=== PATIENT | male | born 1965 | race Caucasian/White ===

== ENCOUNTER → 2024-11-22 | Outpatient (CLI) | payer OTHER, SELFPAY ==
[2024-11-22 16:44] LABS: Mucous, Urine 0 SEEN /hpf (<or=2+); Red Blood Cells-Urine 0 SEEN /hpf (0-5); Squamous Epithelial Cells - UA 0 SEEN /hpf (0-5)
[2024-11-22 18:04] LABS: Hematocrit 42.2 % (40-54); Hemoglobin 14.7 g/dL (13.0-16.5); Immature Granulocytes Count 0.010 X10^3/uL (0.0-0.0); Mean Corp Hgb Conc 34.8 g/dL (32-36); Mean Corpuscular Volume 90.0 fL (80-94); Mean Platelet Vol. 8.5 fl (6.2-12.0); NRBC Flagged by Analyzer 0 % (0-5); Platelet Count 180 K/mm3 (150-450); RBC Distribution Width CV 12.5 % (11.6-14.6); RBC Distribution Width SD 40.9 fl (35.1-43.9); Red Blood Count 4.69 M/mm3 (4.6-6.2); White Blood Count 7.3 K/mm3 (4.4-11.0)
[2024-11-22 18:27] LABS: Color, Urine Yellow (Yellow); Glucose, Dipstick Normal (Normal); Ketone-Dipstick Negative (Negative); Leukocyte Esterase-Dipstick Negative /ul (Negative); Nitrite-Dipstick Negative (Negative); Occult Blood-Urine Negative /ul (Negative); Protein-Dipstick 15 mg/dl (Negative); Specific Gravity, Urine 1.020 (1.002-1.030); Urine Bilirubin Dipstick Negative (Negative)
[2024-11-22 18:49] LABS: AST(SGOT) 24 U/L (<=37); Alanine Aminotransfer ALT/SGPT 15 U/L (<=46); Albumin, Serum 4.5 g/dL (3.5-5.0); Alkaline Phosphatase 81 U/L (40-129); Anion Gap 12 (5-15); BUN 19 mg/dL (4-19); BUN/Creat Ratio 15.3 RATIO (10-20); Calcium,Total 9.7 mg/dL (7.6-11.0); Carbon Dioxide 22.4 mmol/L (21.0-32.0); Chloride 105 mmol/L (98-108); Cholesterol 192 mg/dL (<=200); Globulin 2.8 g/dL (2.2-4.2); Glucose 86 mg/dL (70-99); Low Density Lipoprotein Calc. 131 mg/dL; PSA,Total - Annual Screen 0.43 ng/mL (0.02-4.00); Potassium 4.3 mmol/L (3.3-5.1); Triglycerides 98 mg/dL; Very Low Density Lipoprotein 20 mg/dL (5-40); Vitamin D,25 Hydroxy 23.0 ng/mL (30-100); cholesterol:hdl ratio screen 4.64
== END | disposition home or self-care (01) ==
LOC: MFPLAB 16:10
PROVIDERS: Visit Provider Family Medicine
DX: R31.9 Hematuria, unspecified (principal); Z13.220 Encounter for screening for lipoid disorders; Z13.1 Encounter for screening for diabetes mellitus; Z12.5 Encounter for screening for malignant neoplasm of prostate; R53.83 Other fatigue
CPT/HCPCS: 36415; 80053; 80061; 81001; 82306; 84153; 84443; 85025; 87086; G0103

== ENCOUNTER 2025-03-05 05:43 | Day surgery (SDC) | payer OTHER, SELFPAY ==
[2025-03-05] VITALS (9 sets, daily range): BP systolic 105–133; BP diastolic 72–83; PULSE 61–77; RESP 16–18; TEMP 36.1–36.2; O2SAT 97–100; BMI 29.0
--- OUTSIDE RECORDS SUMMARY | 2025-03-05 05:46 | XMS RPT_ITS | CCD ---
Author Organization [facility] Care Team Providers Care Account Liaison Name Role Phone Kevin Martins Attending Unavailable Eliezer GAYLE, Kevin Attending Physician Problems Problem Classification Problem Date Documented Da te Episodic/Chronic Genitourinary symptoms and ill-defined conditions (1 source) Hematuria, unspecified; Translations: [Hematuria, unspecified] Onset: 12-06-2024 Episodic Results Test Name Value Interpretation Reference Range Facility CNOV 12-04-2024 CNOV Office Visit (GENSWS) VISHALJAHAIRA Smith ([id number]) 1965 M Date Time Provider Department 12/04/24 9:30 AM ROSY WEISS GENSWS During your visit today, we recorded the following information about you: Rosy Weiss APRN.NUCLEAR SPECTROSCOPIST 12/11/2024 8:59 AM Signed Unsure how chart was activated. Pt was never seen. Appt was cancelled d/t financial. Referring Provider: SELF [[id number]] Allergies As of Date: 12/04/2024 (No Known Allergies) Date Reviewed: 07/08/2016 Reviewed by: June Kearns LPN - Fully Assessed Primary Visit Diagnosis:FH: colon cancer [Z80.0] Prescriptions as of 12/11/2024 - hydrocortisone (ANUSOL-HC) 25 mg suppository 1 Suppository by RECTAL route twice daily as needed (hemorrhoids/rectal pain). - imiquimod 5 % cream apply every other day (3 days/wk) Problem List As Of Date 12/04/2024 Noted Resolved FH: colon cancer [Z80.0] 11/04/2011 Encounter Status:Closed by ROSY WEISS on 12/11/24 Normal [facility] Urine Cultureon 11-23-2024 [facility] Order Date: 11/22/24 Order Info: 630-4 - CUUR Culture exhibits no growth. Normal [facility] Comment on above: Performed By: #### M 100.2200 #### [facility] [address] [place], [address] Absolute lymphocyte countOrd ered By: [facility] on 11-22-2024 Lymphocytes Auto (Unsp spec) [#/Vol] 1.50 10*3/uL 0.83-4.51 [facility] Absolute neutrophil countOrd ered By: [facility] on 11-22-2024 Neutrophils (Bld) [#/Vol] 4.9 10*3/uL 2.0-7.7 [facility] Anion gap in Serum or Plasma Ordered By: Kevin Martins on 11-22-2024 Anion gap [Moles/Vol] 12 mmol/L 5-15 [facility] Automated lymphocyte count a s percentage of total leukocytesOrdered By: Kevin Martins on 11-22-2024 Lymphocytes/100 WBC Auto (Unsp spec) 20.6 % 19-41 [facility] BUN/creatinine ratioOrdered By: [facility] Eliezer on 11-22-2024 Urea nitrogen/Creatinine [Mass ratio] 15.3 mg/mg 10-20 [facility] Basophil percentageOrdered B y: Kevin Martins on 11-22-2024 Basophils/100 WBC (Bld) 0.8 % 0-1 [facility] Bilirubin Test strip Ql (U)O rdered By: Kevin Martins on 11-22-2024 Bilirubin Ql (U) Negative Negative [facility] Bilirubin, totalOrdered By: Kevin Martins on 11-22-2024 Bilirubin [Mass/Vol] 0.59 mg/dL 0.00-1.30 [facility] CBC W/Diff, Automatedon Absolute Lymph 1.50 X10 3/uL Normal 0.83-4.51 [facility] Comment on above: Performed By: #### L 506.1001, L501.9910, L501.9520, L500.4050, L100.0100, L500.4100 #### [facility] [address] [place], [address] Absolute Neut 4.9 X10 3/uL Normal 2.0-7.7 [facility] Comment on above: Performed By: #### L 506.1001, L501.9910, L501.9520, L500.4050, L100.0100, L500.4100 #### [facility] [address] [place], [address] Basophils/100 WBC (Bld) 0.8 % Normal 0-1 [facility] Comment on above: Performed By: #### L 506.1001, L501.9910, L501.9520, L500.4050, L100.0100, L500.4100 #### [facility] [address] [place], [address] Eosinophils/100 WBC (Bld) 3.8 % Normal 0-5 [facility] Comment on above: Performed By: #### L 506.1001, L501.9910, L501.9520, L500.4050, L100.0100, L500.4100 #### [facility] [address] [place], [address] Erythrocyte distribution width (RBC) [Ratio] 12.5 % Normal 11.6-14.6 [facility] Comment on above: Performed By: #### L 506.1001, L501.9910, L501.9520, L500.4050, L100.0100, L500.4100 #### [facility] [address] [place], [address] Hematocrit (Bld) [Volume fraction] 42.2 % Normal 40-54 [facility] Comment on above: Performed By: #### L 506.1001, L501.9910, L501.9520, L500.4050, L100.0100, L500.4100 #### [facility] [address] [place], [address] Hemoglobin (Bld) [Mass/Vol] 14.7 g/dL Normal 13.0-16.5 [facility] Comment on above: Performed By: #### L 506.1001, L501.9910, L501.9520, L500.4050, L100.0100, L500.4100 #### [facility] [address] [place], [address] IG% 0.100 Normal 0.0-0.9 [facility] Comment on above: Result Comment: IG% - Immature Granulocytes (promyelocytes, myelocytes and metamyelocytes) > 1% indicates that a LEFT SHIFT is Present. Performed By: #### L 506.1001, L501.9910, L501.9520, L500.4050, L100.0100, L500.4100 #### [facility] [address] [facility] [place], [address] Lymphocytes/100 WBC (Bld) 20.6 % Normal 19-41 [facility] Comment on above: Performed By: #### L 506.1001, L501.9910, L501.9520, L500.4050, L100.0100, L500.4100 #### [facility] [address] [place], [address] MCH (RBC) [Entitic mass] 31.3 pg Normal 27.0-32.0 [facility] Comment on above: Performed By: #### L 506.1001, L501.9910, L501.9520, L500.4050, L100.0100, L500.4100 #### [facility] [address] [place], [address] MCHC (RBC) [Mass/Vol] 34.8 g/dL Normal 32-36 [facility] Comment on above: Performed By: #### L 506.1001, L501.9910, L501.9520, L500.4050, L100.0100, L500.4100 #### [facility] [address] [place], [address] MCV (RBC) [Entitic vol] 90.0 fL Normal 80-[address] [facility] Comment on above: Performed By: #### L 506.1001, L501.9910, L501.9520, L500.4050, L100.0100, L500.4100 #### [facility] [address] [place], [address] Monocytes/100 WBC (Bld) 7.4 % Normal 0-[address] [facility] Comment on above: Performed By: #### L 506.1001, L501.9910, L501.9520, L500.4050, L100.0100, L500.4100 #### [facility] [address] [place], [address] Neutrophils/100 WBC (Bld) 67.3 % Normal 47-70 [facility] Comment on above: Performed By: #### L 506.1001, L501.9910, L501.9520, L500.4050, L100.0100, L500.4100 #### [facility] [address] [place], [address] Nucleated RBC (Bld) [#/Vol] 0 10*3/uL Normal 0-5 [facility] Comment on above: Performed By: #### L 506.1001, L501.9910, L501.9520, L500.4050, L100.0100, L500.4100 #### [facility] [address] [place], [address] Platelet mean volume (Bld) [Entitic vol] 8.5 fL Normal 6.2-12.0 [facility] Comment on above: Performed By: #### L 506.1001, L501.9910, L501.9520, L500.4050, L100.0100, L500.4100 #### [facility] [address] [place], [address] Platelets (Bld) [#/Vol] 180 10*3/uL Normal 150-450 [facility] Comment on above: Performed By: #### L 506.1001, L501.9910, L501.9520, L500.4050, L100.0100, L500.4100 #### [facility] [address] [place], [address] RBC (Bld) [#/Vol] 4.69 10*6/uL Normal 4.6-6.2 [facility] Comment on above: Performed By: #### L 506.1001, L501.9910, L501.9520, L500.4050, L100.0100, L500.4100 #### [facility] [address] [place], [address] RDW SD 40.9 fl Normal 35.1-43.9 [facility] Comment on above: Performed By: #### L 506.1001, L501.9910, L501.9520, L500.4050, L100.0100, L500.4100 #### [facility] [address] [place], [address] WBC (Bld) [#/Vol] 7.3 10*3/uL Normal 4.4-11.0 [facility] Comment on above: Performed By: #### L 506.1001, L501.9910, L501.9520, L500.4050, L100.0100, L500.4100 #### [facility] [address] [place], [address] Calculated very low density lipoprotein (VLDL) cholesterol measurementOrdered By: Kevin Martins on 11-22-2024 Calculated very low density lipoprotein (VLDL) cholesterol measurement 20 mg/dL 5-40 [facility] Carbon dioxide, total [Moles /volume] in Central venous bloodOrdered By: Kevin Martins on 11-22-2024 CO2 [Moles/Vol] 22.4 mmol/L 21.0-32.0 [facility] Chloride assayOrdered By: Bryan Martins on 11-22-2024 Chloride [Moles/Vol] 105 mmol/L 98-108 [facility] Comprehensive Metabolic Prof ilon 11-22-2024 Albumin [Mass/Vol] 4.5 g/dL Normal 3.5-5.0 [facility] Comment on above: Performed By: #### L 506.1001, L501.9910, L501.9520, L500.4050, L100.0100, L500.4100 #### [facility] [address] [place], [address] Albumin/Globulin [Mass ratio] 1.6 {ratio} Normal 0.9-2.4 [facility] Comment on above: Performed By: #### L 506.1001, L501.9910, L501.9520, L500.4050, L100.0100, L500.4100 #### [facility] [address] [place], [address] ALK PHOS 81 U/L Normal 40-129 [facility] Comment on above: Performed By: #### L 506.1001, L501.9910, L501.9520, L500.4050, L100.0100, L500.4100 #### [facility] [address] [place], [address] ALT [Catalytic activity/Vol] 15 U/L Normal <=46 [facility] Comment on above: Performed By: #### L 506.1001, L501.9910, L501.9520, L500.4050, L100.0100, L500.4100 #### [facility] [address] [place], [address] AST [Catalytic activity/Vol] 24 U/L Normal <=37 [facility] Comment on above: Performed By: #### L 506.1001, L501.9910, L501.9520, L500.4050, L100.0100, L500.4100 #### [facility] [address] [place], [address] Bilirubin [Mass/Vol] 0.59 mg/dL Normal 0.00-1.30 [facility] Comment on above: Performed By: #### L 506.1001, L501.9910, L501.9520, L500.4050, L100.0100, L500.4100 #### [facility] [address] [place], [address] BUN/CRE 15.3 RATIO Normal 10-20 [facility] Comment on above: Performed By: #### L 506.1001, L501.9910, L501.9520, L500.4050, L100.0100, L500.4100 #### [facility] [address] [place], [address] Calcium [Mass/Vol] 9.7 mg/dL Normal 7.6-11.0 [facility] Comment on above: Performed By: #### L 506.1001, L501.9910, L501.9520, L500.4050, L100.0100, L500.4100 #### [facility] [address] [place], [address] Chloride [Moles/Vol] 105 mmol/L Normal 98-108 [facility] Comment on above: Performed By: #### L 506.1001, L501.9910, L501.9520, L500.4050, L100.0100, L500.4100 #### [facility] [address] [place], [address] CO2 [Moles/Vol] 22.4 mmol/L Normal 21.0-32.0 [facility] Comment on above: Performed By: #### L 506.1001, L501.9910, L501.9520, L500.4050, L100.0100, L500.4100 #### [facility] [address] [place], [address] Creatinine [Mass/Vol] 1.23 mg/dL High 0.70-1.20 [facility] Comment on above: Performed By: #### L 506.1001, L501.9910, L501.9520, L500.4050, L100.0100, L500.4100 #### [facility] [address] [place], [address] GAP 12 Normal 5-15 [facility] Comment on above: Performed By: #### L 506.1001, L501.9910, L501.9520, L500.4050, L100.0100, L500.4100 #### [facility] [address] [place], [address] GFR/1.73 sq M.predicted among non-blacks MDRD (S/P/Bld) [Vol rate/Area] 69 mL/min/{1.73_m2} Normal >60 [facility] Comment on above: Result Comment: mL/m in/1.73m2 CKD-EPI Creatinine Equation (2020) Performed By: #### L 506.1001, L501.9910, L501.9520, L500.4050, L100.0100, L500.4100 #### [facility] [address] [place], [address] Globulin (S) [Mass/Vol] 2.8 g/dL Normal 2.2-4.[address] [facility] Comment on above: Performed By: #### L 506.1001, L501.9910, L501.9520, L500.4050, L100.0100, L500.4100 #### [facility] [address] [place], [address] Glucose [Mass/Vol] 86 mg/dL Normal 70-99 [facility] Comment on above: Performed By: #### L 506.1001, L501.9910, L501.9520, L500.4050, L100.0100, L500.4100 #### [facility] [address] [place], [address] Potassium [Moles/Vol] 4.3 mmol/L Normal 3.3-5.1 [facility] Comment on above: Performed By: #### L 506.1001, L501.9910, L501.9520, L500.4050, L100.0100, L500.4100 #### [facility] [address] [place], [address] Sodium [Moles/Vol] 140 mmol/L Normal 133-145 [facility] Comment on above: Performed By: #### L 506.1001, L501.9910, L501.9520, L500.4050, L100.0100, L500.4100 #### [facility] [address] [place], [address] T PROT 7.3 g/dL Normal 5.9-8.4 [facility] Comment on above: Performed By: #### L 506.1001, L501.9910, L501.9520, L500.4050, L100.0100, L500.4100 #### [facility] [address] [place], [address] Urea nitrogen [Mass/Vol] 19 mg/dL Normal 4-19 [facility] Comment on above: Performed By: #### L 506.1001, L501.9910, L501.9520, L500.4050, L100.0100, L500.4100 #### [facility] [address] [place], [address] Eosinophil percentageOrdered By: Kevin Martins on 11-22-2024 Eosinophils/100 WBC (Bld) 3.8 % 0-5 [facility] Erythrocyte distribution wid th ratioOrdered By: [facility] on 11-22-2024 Erythrocyte distribution width (RBC) [Ratio] 12.5 % 11.6-14.6 [facility] Erythrocyte distribution wid th standard deviationOrdered By: Kevin Eliezer on 11-22-2024 Erythrocyte distribution width (RBC) [Ratio] 40.9 fl 35.1-43.9 [facility] Glomerular filtration rate ( GFR) estimation/1.73 sq m using serum, plasma, or whole bOrdered By: Kevin Martins on 11-22-2024 GFR/1.73 sq M.predicted among non-blacks MDRD (S/P/Bld) [Vol rate/Area] 69 mL/min/{1.73_m2} >60 [facility] Comment on above: mL/min/1.73m2 CKD-EP I Creatinine Equation (2020) Hematocrit Auto (Bld) [Volum e fraction]Ordered By: Kevin Martins on 11-22-2024 Hematocrit (Bld) [Volume fraction] 42.2 % 40-54 [facility] Hemoglobin measurementOrdere d By: Kevin aMrtins on 11-22-2024 Hemoglobin (Bld) [Mass/Vol] 14.7 g/dL 13.0-16.5 [facility] Immature granulocytes/100 WB C Auto (Bld)Ordered By: Kevin Martins on 11-22-2024 Immature granulocytes/100 WBC (Bld) 0.100 % 0.0-0.9 [facility] Comment on above: IG% - Immature Granu locytes (promyelocytes, myelocytes and metamyelocytes) > 1% indicates that a LEFT SHIFT is Present. Ketones Test strip Ql (U)Ord ered By: Kevin Martins on 11-22-2024 Ketones Ql (U) Negative Negative [facility] LDL calc ser/plasOrdered By: Kevin Martins on 11-22-2024 Cholesterol in LDL [Mass/Vol] 131 mg/dL [facility] Comment on above: Gkoiacafes=559-032 m g/dL & Higher Biot=233 mg/dL or greaterFriedwald Equation for LDL-C Laboratory - Chemistry and C hemistry - challengeOrdered By: Kevin Martins on 11-22-2024 AST [Catalytic activity/Vol] 24 U/L <38 [facility] Lipid Profileon 11-22-2024 CHOL:HDL 4.64 Normal [facility] Comment on above: Performed By: #### L 506.1001, L501.9910, L501.9520, L500.4050, L100.0100, L500.4100 #### [facility] [address] [place], [address] Cholesterol [Mass/Vol] 192 mg/dL Normal <=200 [facility] Comment on above: Result Comment: Chol esterol level, Desirable <200 mg/dL Borderline high cholesterol 200-239 mg/dL High cholesterol >=240 mg/dL Recommendations of the NCEP Adult Treatment Panel for the following risk-cutoff thresholds for the [place] population. Performed By: #### L 506.1001, L501.9910, L501.9520, L500.4050, L100.0100, L500.4100 #### [facility] [address] [place], [address] Cholesterol in HDL [Mass/Vol] 41 mg/dL Normal [facility] Comment on above: Result Comment: Amna onal Cholesterol Education Program (NCEP) guidelines: <40 mg/dL: Low HDL-cholesterol (major risk factor for CHD) >= 60 mg/dL: High HDL-cholesterol (negative risk factor for CHD) HDL-cholesterol is affected by a number of factors, e.g. smoking, exercise, hormones, sex and age. Performed By: #### L 506.1001, L501.9910, L501.9520, L500.4050, L100.0100, L500.4100 #### [facility] [address] [place], [address] Cholesterol in LDL [Mass/Vol] 131 mg/dL Normal [facility] Comment on above: Result Comment: Bord voxarr=946-439 mg/dL Higher Nzuu=167 mg/dL or greater Friedwald Equation for LDL-C Performed By: #### L 506.1001, L501.9910, L501.9520, L500.4050, L100.0100, L500.4100 #### [facility] [address] [place], [address] Cholesterol in VLDL [Mass/Vol] 20 mg/dL Normal 5-40 [facility] Comment on above: Performed By: #### L 506.1001, L501.9910, L501.9520, L500.4050, L100.0100, L500.4100 #### [facility] [address] [place], [address] Triglyceride [Mass/Vol] 98 mg/dL Normal [facility] Comment on above: Result Comment: The drugs N-Acetylcysteine and Metamizole may falsely depress this assay. Normal range: <150 mg/dL Borderline High: 150-199 mg/dL High: 200-499 mg/dL Very High: >500 mg/dL Performed By: #### L 506.1001, L501.9910, L501.9520, L500.4050, L100.0100, L500.4100 #### [facility] [address] [place], [address] MCV (mean corpuscular volume ) determinationOrdered By: Kevin Martins on 11-22-2024 MCV (RBC) [Entitic vol] 90.0 fL 80-94 [facility] Mean corpuscular hemoglobin (MCH) determinationOrdered By: Kevin Martins on 11-22-2024 MCH (RBC) [Entitic mass] 31.3 pg 27.0-32.0 [facility] Mean corpuscular hemoglobin concentration (MCHC) determinationOrdered By: Kevin Martins on 11-22-2024 MCHC (RBC) [Mass/Vol] 34.8 g/dL 32-36 [facility] Mean platelet volume determi nationOrdered By: Kevin Martins on 11-22-2024 Platelet mean volume (Bld) [Entitic vol] 8.5 fL 6.2-12.0 [facility] Microscopic analysis of urin e for red blood cells (RBC)Ordered By: Kevin Martins on 11-22-2024 Microscopic analysis of urine for red blood cells (RBC) 0 SEEN /hpf 0-5 [facility] Monocyte percentageOrdered B y: Kevin Martins on 11-22-2024 Monocytes/100 WBC (Bld) 7.4 % 0-10 [facility] Mucus LM Ql (Urine sed)Order ed By: Kevin Martins on 11-22-2024 Mucus Ql (Urine sed) 0 SEEN /hpf [facility] Neutrophil percentageOrdered By: Kevin Martins on 11-22-2024 Neutrophils/100 WBC (Bld) 67.3 % 47-70 [facility] Nitrite Test strip Ql (U)Ord ered By: Kevin Martins on 11-22-2024 Nitrite Ql (U) Negative Negative [facility] Nucleated red blood cell per centageOrdered By: Kevin Martins on 11-22-2024 Nucleated RBC/100 WBC (Bld) [Ratio] 0 % 0-5 [facility] PSA,Total - Annual Screenon 11-22-2024 PSA,TOT SCREEN 0.43 ng/mL Normal 0.02-4.00 [facility] Comment on above: Result Comment: This test was performed using the [employer] tPSA method. Measured values of a patient??sample can vary depending on the testing procedure used. PSA values determined on patient samples by different testing procedures cannot be used interchangeably. If there is a change in PSA assays while monitoring therapy, sequential testing should be performed to confirm baseline values. Performed By: #### L 506.1001, L501.9910, L501.9520, L500.4050, L100.0100, L500.4100 #### [facility] [place], [address] Platelet countOrdered By: Bryan Martins on 11-22-2024 Platelets (Bld) [#/Vol] 180 10*3/uL 150-450 [facility] Potassium measurement (mass/ volume)Ordered By: Kevin Martins on 11-22-2024 Potassium (Unsp spec) [Mass/Vol] 4.3 mmol/L 3.3-5.1 [facility] Protein Test strip Ql (U)Ord ered By: Kevin Martins on 11-22-2024 Protein Ql (U) 15 mg/dl High Negative [facility] RBC Auto (Bld) [#/Vol]Ordere d By: Kevin Martins on 11-22-2024 RBC (Bld) [#/Vol] 4.69 10*6/uL 4.6-6.2 [facility] Screening total cholesterol/ high density lipoprotein (HDL) cholesterol ratioOrdered By: Kevin Martins on 11-22-2024 Cholesterol.total/Choles terol in HDL [Mass ratio] 4.64 {ratio} [facility] Serum creatinine measurement (mass/volume)Ordered By: Kevin Martins on 11-22-2024 Creatinine [Mass/Vol] 1.23 mg/dL High 0.70-1.20 [facility] Serum globulin measurementOr dered By: Kevin Martins on 11-22-2024 Globulin (S) [Mass/Vol] 2.8 g/dL 2.2-4.2 [facility] Serum glucose measurement (m ass/volume)Ordered By: Kevin Martins on 11-22-2024 Glucose [Mass/Vol] 86 mg/dL 70-99 [facility] Serum or plasma alanine soto otransferase (ALT) measurementOrdered By: Kevin Martins on 11-22-2024 ALT [Catalytic activity/Vol] 15 U/L <47 [facility] Serum or plasma albumin mervin urement (mass/volume)Ordered By: Kevin Martins on 11-22-2024 Albumin [Mass/Vol] 4.5 g/dL 3.5-5.0 [facility] Serum or plasma albumin/glob ulin mass ratioOrdered By: Kevin Martins on 11-22-2024 Albumin/Globulin [Mass ratio] 1.6 {ratio} 0.9-2.4 [facility] Serum or plasma alkaline jessica sphatase measurementOrdered By: Kevin Martins on 11-22-2024 ALP [Catalytic activity/Vol] 81 U/L 40-129 [facility] Serum or plasma calcium mervin urement (mass/volume)Ordered By: Kevin Martins on 11-22-2024 Calcium [Mass/Vol] 9.7 mg/dL 7.6-11.0 [facility] Serum or plasma cholesterol in HDL measurement (mass/volume)Ordered By: Kevin Martins on 11-22-2024 Cholesterol in HDL [Mass/Vol] 41 mg/dL >40 [facility] Comment on above: National Cholesterol Education Program (NCEP) guidelines:<40 mg/dL: Low HDL-cholesterol (major risk factor for CHD)>= 60 mg/dL: High HDL-cholesterol (negative risk factor for CHD)HDL-cholesterol is affected by a number of factors, e.g. smoking, exercise, hormones, sex and age. Serum or plasma cholesterol measurement (mass/volume)Ordered By: eKvin Martins on 11-22-2024 Cholesterol [Mass/Vol] 192 mg/dL <201 [facility] Comment on above: Cholesterol level, D esirable <200 mg/dLBorderline high cholesterol 200-239 mg/dLHigh cholesterol >=240 mg/dLRecommendations of the NCEP Adult Treatment Panel for the following risk-cutoff thresholds for the [place] population. Serum or plasma urea nitroge n measurement (mass/volume)Ordered By: Kevin Martins on 11-22-2024 Urea nitrogen [Mass/Vol] 19 mg/dL 4-19 [facility] Sodium levelOrdered By: Wilfredo Martins 11-22-2024 Sodium [Moles/Vol] 140 mmol/L 133-145 [facility] Squamous epithelial cells de tection in urine sediment by light microscopyOrdered By: Kevin Martins 11-22-2024 Epithelial cells.squamous LM Ql (Urine sed) 0 SEEN /hpf 0-5 [facility] TSH DL <= 0.005 mIU/L QnOrde red By: Kevin Martins on 11-22-2024 TSH Qn 1.250 uIU/mL 0.300-4.200 [facility] Thyroid Stim Hormone (TSH)on 11-22-2024 TSH 1.250 uIU/mL Normal 0.300-4.200 [facility] Comment on above: Performed By: #### L 506.1001, L501.9910, L501.9520, L500.4050, L100.0100, L500.4100 #### [facility] [address] [place], [address] Total proteinOrdered By: Mary Martins on 11-22-2024 Protein [Mass/Vol] 7.3 g/dL 5.9-8.4 [facility] Triglycerides measurementOrd ered By: Kevin Martins on 11-22-2024 Triglyceride [Mass/Vol] 98 mg/dL <199 [facility] Comment on above: The drugs N-Acetylcy steine and Metamizole may falsely depress this assay. Normal range: <150 mg/dLBorderline High: 150-199 mg/dLHigh: 200-499 mg/dLVery High: >500 mg/dL Urinalysis, Completeon 11-22 BACTERIA 0 SEEN Normal None Seen [facility] Comment on above: Order Comment: CLEAN CATCH Performed By: #### L 400.0001 #### [facility] [address] [place], [address] EPI,SQUAMOUS 0 SEEN Normal 0-5 [facility] Comment on above: Order Comment: CLEAN CATCH Performed By: #### L 400.0001 #### [facility] [address] [place], [address] Mucus Ql (Urine sed) 0 SEEN Normal [facility] Comment on above: Order Comment: CLEAN CATCH Performed By: #### L 400.0001 #### [facility] [address] [place], [address] RBC 0 SEEN Normal 0-5 [facility] Comment on above: Order Comment: CLEAN CATCH Performed By: #### L 400.0001 #### [facility] [address] [place], [address] WBC 0 SEEN Normal 0-5 [facility] Comment on above: Order Comment: CLEAN CATCH Performed By: #### L [id number] #### [facility] [address] [place], [place], [address] Urine clarityOrdered By: Mary Mratins on 11-22-2024 Clarity (U) Clear Clear [facility] Urine color determinationOrd ered By: Kevin Martins on 11-22-2024 Color (U) Yellow Yellow [facility] Urine cultureOrdered By: Mary Martins on 11-22-2024 Bacteria identified Cx Nom (U) Culture exhibits no growth. [facility] Urine glucose detectionOrder ed By: Kevin Martins on 11-22-2024 Glucose Ql (U) Normal mg/dl Normal [facility] Urine leukocyte esterase det ection by dipstickOrdered By: Kevin Martins on 11-22-2024 Leukocyte esterase Test strip Ql (U) Negative Negative [facility] Urine pHOrdered By: Kevin reveles on 11-22-2024 pH (U) 5.0 [pH] 5.0 - 8.0 [facility] Urine sediment bacteria coun t by microscopy (number/high power field)Ordered By: Kevin Martins on 11-22-2024 Bacteria LM.HPF (Urine sed) [#/Area] 0 /[HPF] None Seen [facility] Urine specific gravity measu rementOrdered By: Kevin Martins on 11-22-2024 Specific gravity (U) [Rel density] 1.020 1.002-1.030 [facility] Urine urobilinogen measureme ntOrdered By: Kevin Martins on 11-22-2024 Urobilinogen Ql (U) Normal mg/dl Normal [facility] Vitamin D,25 Hydroxyon 11-22 Vitamin D 25-OH 23.0 ng/mL Low 30-100 [facility] Comment on above: Result Comment: Enedelia min D Status Deficiency: <20 ng/mL (50nmol/L) Insufficiency: 20-30 ng/mL (50-75 nmol/L) Sufficiency: 30-100 ng/mL (75-250 nmol/L) Toxicity: >100 ng/mL (>250 nmol/L) Performed By: #### L 506.1001, L501.9910, L501.9520, L500.4050, L100.0100, L500.4100 #### [facility] [address] [place], [address] White blood cell (WBC) count Ordered By: Kevin Martins on 11-22-2024 WBC (Bld) [#/Vol] 7.3 10*3/uL 4.4-11.0 [facility] White blood cell countOrdere d By: Kevin Martins on 11-22-2024 White blood cell count 0 SEEN /hpf 0-5 [facility] Encounters Encounter Date Encounter Type Care Provider Facility Start: 11-22-2024 End: 11-22-2024 ambulatory Kevin Martins MD Work Phone: -[facility] Start: 11-22-2024 End: 11-22-[address] Kevin Martins MD -[facility] Start: 11-22-2024 End: 11-22-2024 ambulatory Kevin Martins Facility:[facility] Procedures Date Procedure Procedure Detail Performing Clinician Start: 11-22-2024 Urnls dip stick/tabl et reagent auto microscopy Kevin Martins MD Work Phone: Start: 11-22-2024 Prostate specific an tigen measurement Kevin Martins MD Work Phone: Comment on above: This test was perfor med using the [employer] tPSA method. Measured values of a patient sample can vary depending on the testing procedure used. PSA values determined on patient samples by different testing procedures cannot be used interchangeably. If there is a change in PSA assays while monitoring therapy, sequential testing should be performed to confirm baseline values. Start: 11-22-2024 Vitamin D, 25-hydrox y measurement Kevin Martins MD Work Phone: Comment on above: Vitamin D StatusDefi ciency: <20 ng/mL (50nmol/L)Insufficiency: 20-30 ng/mL (50-75 nmol/L)Sufficiency: 30-100 ng/mL (75-250 nmol/L)Toxicity: >100 ng/mL (>250 nmol/L) Start: 11-22-2024 Urine culture Kevin blum MD Work Phone: Payers Date Payer Category Payer Self-pay 2024 Unknown [id number] Unknown [id number] Social History Date Type Detail Facility Tobacco smoking stat [facility] Unknown if ever smoked [facility] Work Phone: Sex Male [facility] Start: 1965 Sex Assigned At Male [facility] Progress note 12-11-2024 Note Date & Type Note Facility 12-11-2024 Note HNO ID: [id number] Author: ROSY WEISS APRN.NUCLEAR SPECTROSCOPIST Service: ? Author Type: Nurse Practitioner Type: Progress Notes Filed: 12/11/2024 08:59 Note Text: Unsure how chart was activated. Pt was never seen. Appt was cancelled d/t financial. [facility] Evaluation note Note Date & Type Note Facility Evaluation note No assessment information availa ble [facility] Work Phone: Reason for referral (narrative) Note Date & Type Note Facility Reason for referral (narrative) No reason for referral information available [facility] Work Phone: Summary Purpose Family History No Family History Records FoundNo Family History Records Found Advance Directives No Advanced Directives Records FoundNo Advanced Directives Records Found Additional Source Comments (unrecognized sect ion and content) No Status Records FoundNo Status Records Found INFORMATION SOURCE (unrecogn ized section and content) DATE CREATED AUTHOR 12/08/2024 [facility] DATE CREATED AUTHOR AUTHOR'S ORGANIZ ATION 12/12/2024 [facility] Care Teams (unrecognized sec tion and content) Team Status: Inactive Member Role/Relationship Status Dates Kevin Martins MD Attending physician Active Star t: November 22, 2024 End: November 22, 2024 Goals (unrecognized section and content) Goals may be documented in a n alternate section FOR RECORDS PERTAINING TO PATIENTS WHO ARE OR HAVE BEEN ENROLLED IN A CHEMICAL DEPENDENCY/SUBSTANCEABUSE PROGRAM, SOME INFORMATION MAY BE OMITTED. This clinical summary was aggregated from multiple sources. Caution should be exercised in using it in the provision of clinical care. This summary normalizes information from multiple sources, and as a consequence, information in this document may materially change the coding, format and clinical context of patient data. In addition, data may be omitted in some cases. CLINICAL DECISIONS SHOULD BE BASED ON THE PRIMARY CLINICAL RECORDS. [facility] [employer] [facility]. provides no warranty or guarantee of the accuracy or completeness of information in this document.
[2025-03-05] MEDS: Lactated Ringers 1,000 ML 15 ML IV (06:29)
--- NOTE | 2025-03-05 06:53 | PCM.PRE.AN2 ---
ASA Classification* ASA Classification ASA Classification: 2 Assessment & Plan Anesthesia* Anesthesia Assessment Anesthesia Assessment: Discussed sedation and/or anesthesia options, risks, benefits, and alternatives with patient/parents/legal guardian/POA. Questions invited. The patient/parents/legal guardian/POA seems to understand and agrees to proceed with anesthesia plan. Reviewed the physical assessment, medical history, allergy history and patient home medications list prior to surgery/procedure/anesthetic and documented any changes. Performed airway and anesthesia risk assessments. Anesthesia Type Anesthesia Type: MAC History Source History Obtained from:: Patient and Chart Anesthesia Focused Assessment* Temperature: 97.1 F Pulse Rate: 71 Blood Pressure: 133/82 Respiratory Rate: 18 Pulse Ox: 100 Oxygen Delivery Method: Room Air Airway Assessment Mouth opens: >3 cm Mallampati Score: IV Teeth Condition: Implants (Patient has 1 implant of the lower incisor. It is tight.) Neck Range of motion (ROM): Full ROM Labs Anesthesia Preop lab: CBC WBC, (4.4-11.0) 7.3 K/mm3 11/22/24, 16:14 RBC, (4.6-6.2) 4.69 M/mm3 11/22/24, 16:14 Hgb, (13.0-16.5) 14.7 g/dL 11/22/24, 16:14 Hct, (40-54) 42.2 % 11/22/24, 16:14 Plt Count, (150-450) 180 K/mm3 11/22/24, 16:14 CHEMISTRY Potassium, (3.3-5.1) 4.3 mmol/L 11/22/24, 16:14 Sodium, (133-145) 140 mmol/L 11/22/24, 16:14 BUN, (4-19) 19 mg/dL 11/22/24, 16:14 Creatinine, (0.70-1.20) 1.23 mg/dL H 11/22/24, 16:14 Glucose, (70-99) 86 mg/dL 11/22/24, 16:14 TSH, (0.300-4.200) 1.250 uIU/mL 11/22/24, 16:14 COAG Pre-Assessment Diagnosis/Proposed Procedure Planned Operative Procedure(s): COLONOSCOPY Anesthesia History Anesthesia History - assisted living administrator: Anesthesia History - assisted living administrator Hx Hospitalization No 03/04/25 09:46 Any Problems With Anesthesia No 03/04/25 09:46 Cholinesterase deficiency No 03/04/25 09:46 You/Your Family Experience No 03/04/25 09:46 fever (hyperthermia) with Relationship Recent Exposure to Contagious No 03/05/25 06:20 Disease Does patient have nerve No 03/04/25 09:46 stimulator Patient instructed to have device shut off --Does patient have Pacemaker No 03/05/25 06:22 or ICD? When Was Last Pacemaker Check QUESTION #4 FULL TEXT: You/Your Family Experience fever (hyperthermia) with Anesthesia Last Oral Intake Last Oral intake: Last Oral Intake NPO since 02:45 03/05/25 06:22 Meds taken in AM with sips of No 03/05/25 06:22 water? Meds patient instructed to take am of surgery Any additional information?: Yes NPO since: 02:45 (Patient finished his prep at 2:45 AM) Meds taken in AM with sips of water?: No PONV PONV - assisted living administrator: PONV - assisted living administrator Female No 03/04/25 09:46 HX of Motion Sickness No 03/04/25 09:46 HX of N/V After Surgery No 03/04/25 09:46 Non-Smoker Yes 03/04/25 09:46 Duration of Surgery greater No 03/04/25 09:46 than 60 minutes Number of Risk Factors 1 03/04/25 09:46 PONV Score Low Risk 03/04/25 09:46 Height & Weight Height & Weight: Anesthesia: Height & Weight Height 5 ft 9 in 03/05/25 06:22 Weight: 89 kg 03/05/25 06:22 Body Mass Index (BMI) 29.0 03/05/25 06:22 Respiratory Assessment Respiratory Assessment - assisted living administrator: Respiratory Tract Infection Hx - assisted living administrator Hx Respiratory Tract Infection No 03/04/25 09:46 STOP Sleep Apnea STOP Sleep Apnea - assisted living administrator: STOP Sleep Apnea - assisted living administrator Hx Hypertension No 03/04/25 09:46 Hx Sleep Apnea No 03/04/25 09:46 CPAP BIPAP Do you snore loudly (louder No 03/04/25 09:46 than talking or can be heard Do you often feel tired/ No 03/04/25 09:46 fatigued/ sleepy during daytime? Has anyone observed you stop No 03/04/25 09:46 breathing during sleep? STOP Results Negative 03/04/25 09:46 QUESTION #5 FULL TEXT : Do you snore loudly (louder than talking or can be heard through closed doors)? Tobacco Use History Tobacco Use History - assisted living administrator: Tobacco Use History - assisted living administrator Tobacco Use Smoking Status Never smoker 03/04/25 09:46 Hx Tobacco Use No 03/04/25 09:46 Years Smoking Packs Smoked per Day Smoking Cessation Date was within the last 15 years Hx Smoking Cessation Date Hx Smoking Cessation Counseling Hematologic Medial History Hematologic Hx - assisted living administrator: Hematologic Medical Hx - [employer] Hx of Blood Transfusion No 03/04/25 09:46 Hx of Transfusion in last 3 No 03/04/25 09:46 Months Date of Last Transfusion (if within last 3 months) Ever experience any problems No 03/04/25 09:46 with transfusion(s)? Specify any problems Hx of Preganancy in last 3 N/A 03/04/25 09:46 Months Nurse Filling Out Transfusion VCHRISTIN 03/04/25 09:46 & Questions: Date: 03/04/25 03/04/25 09:46 Time: 09:47 03/04/25 09:46 Patient unable to answer at this time (ie. confused, unrespo /Reproduction History /Reproductive History - assisted living administrator: /Reproductive Hx- assisted living administrator Hx Now No 03/04/25 09:46 Gestational Age (in weeks): EDC: Hx Hx Para Hx Section SAB No 03/04/25 09:46 Does the father of the baby or his family experience fever w Father of the baby Malignant Hypertension history comment Active Medications Active Medications: Current Medications Generic Name Dose Route Start Last Admin Trade Name Freq PRN Reason Stop Dose Admin Lactated Ringer's 1,000 mls @ 15 mls/hr 03/05/25 06:00 03/05/25 06:29 IV 15 mls/hr .Q48H WILNER Administration PFSH Medical History Arthritis History of GI bleed Non-smoker Home Medications ?Medication ?Instructions ?Recorded ?Last Taken ?Type bisacodyl 5 mg tablet,delayed 20 mg (4 x 5 mg) PO ONCE #4 tabs 02/27/25 Unknown Rx release polyethylene glycol 3350 17 238 g PO ONCE #238 grams 02/27/25 Unknown Rx gram/dose oral powder ergocalciferol (vitamin D2) 1,250 1,250 mcg PO QWEEK 03/04/25 02/26/25 History mcg (50,000 unit) capsule Allergy/AdvReac Type Severity Reaction Status Date / Time No Known Allergies Allergy Verified 03/05/25 06:19 Family History Mother Diabetes Unknown Colon cancer Surgical History Hx of surgical procedure Social History household members: spouse Smoking Status: Never smoker alcohol intake: never substance use type: does not use Review of Systems (Anesthesia) ROS Narrative System reviewed and no additional complaints, except as documented.
--- NOTE | 2025-03-05 07:00 | COLBX_PTH ---
PATIENT: JAHAIRA RODGERS LOC: EN U#:[id number] AGE/SX: 59/M ROOM: RE03/05/[address]: Dr. Jacoby De La Paz DO : 1965 BED: DIS: 03/05/2025 SPEC #: [id number] RECD: 03/05/25 07:57 STATUS: ABIOLA REQ #: [id number] KAYLEIGH: 03/05/25 07:[address]: Jacoby De La Paz DEPT: SURGICAL PATHOLOGY RECD BY: Alpesh Wood ENTERED: 03/05/25 15:40 SP TYPE: COLON BX OTHR DR: Kevin Martisn MD Tissues: A - SPLENIC FLEXURE B - Rectum, NOS Procedures: Surgery Specimen Level IV HEADER OPERATION: Colonoscopy, biopsy PRE-OP DIAGNOSIS: Bloody stool, loose stools TISSUE SUBMITTED: A- Splenic flexure polyp biopsy, B- Rectal mass biopsy ADDENDUM ADDENDUM ADDENDUM ADDENDUM ADDENDUM 03/14/2025 15:08 ADDENDUM 03/14/2025 15:08 ADDENDUM 03/14/2025 15:08 ADDENDUM 03/14/2025 15:08 ADDENDUM 03/14/2025 15:08 This addendum is to report the IHC for mismatch repair proteins (MMR) on the rectal mass, part B: B. MICROSCOPIC DIAGNOSIS A. Large intestine, splenic flexure, biopsy: Tubular adenoma. B. Rectum, mass, biopsy: Adenocarcinoma. IHC for mismatch repair proteins is PENDING and will be reported in an addendum. MICROSCOPIC DESCRIPTION Slides are reviewed. GROSS DESCRIPTION A. Received in fixative is one container labeled with the patient's name and designated Splenic flexure polyp biopsy. The specimen consists of one irregular fragment of alfredo tissue that measures 0.4 cm. The specimen is totally submitted in one cassette. B. Received in fixative is one container labeled with the patient's name and designated Rectal mass biopsy. The specimen consists of multiple irregular fragments of alfredo tissue that in aggregate measure 1.5 x 0.6 x 0.2 cm. The specimen is totally submitted in one cassette. FL 03/05/2025 CPT:[id number] ADDENDUM ADDENDUM ADDENDUM ADDENDUM ADDENDUM 03/14/2025 15:08 ADDENDUM 03/14/2025 15:08 ADDENDUM 03/14/2025 15:08 ADDENDUM 03/14/2025 15:08 ADDENDUM 03/14/2025 15:08 This addendum is to report the IHC for mismatch repair proteins (MMR) on the rectal mass, part B: B.
--- NOTE | 2025-03-05 07:07 | HP.PCM_ITS ---
HPI - General General Date of Admission: 03/05/25 Date of Service: 03/05/25 Chief Complaint: Diarrhea and bloody stools HPI Narrative JAHAIRA RODGERS, is a 59 M who presents [ Chief Complaint: Blood in stool Referred from primary care provider due to bloody stools. Starting 10 years ago. No history of colonoscopy. Establishment visit 02/04/25 - Blood with bowel movements over the past 10 years, sees it in the bowl, on the TP and in the stool - Blood can be bright red or maroon, sometimes passes blood only and no stool - Stools are soft/loose over the past year, few times per day, frequently after eating -Intermittent diffuse abdominal cramping -Denies unintentional weight loss, constipation, heartburn or nausea vomiting - No history of colonoscopy - Father had lower intestinal cancer in his 30s - Denies family history of UC or Crohn's [facility] Medical History Arthritis History of GI bleed Non-smoker Home Medications ?Medication ?Instructions ?Recorded ?Last Taken ?Type bisacodyl 5 mg tablet,delayed 20 mg (4 x 5 mg) PO ONCE #4 tabs 02/27/25 Unknown Rx release polyethylene glycol 3350 17 238 g PO ONCE #238 grams 1 04/30/24 Unknown Rx gram/dose oral powder ergocalciferol (vitamin D2) 1,250 1,250 mcg PO QWEEK 1 05/05/24 02/26/25 History mcg (50,000 unit) capsule Allergy/AdvReac Type Severity Reaction Status Date / Time No Known Allergies Allergy Verified 03/05/25 06:19 Family History Mother Diabetes Unknown Colon cancer Surgical History Hx of surgical procedure Social History household members: spouse Smoking Status: Never smoker alcohol intake: never substance use type: does not use ROS Constitutional Constitutional: Denies fatigue, fever(s), poor appetite, weight gain or weight loss Gastrointestinal Gastrointestinal: Denies belching, bloating, change in bowel habits, change in stool character, chewing difficulty, coffee ground emesis, constipation, cramping, diarrhea, dyspepsia, dysphagia, early satiety, excessive flatus, fecal incontinence, heartburn, hematemesis, hematochezia, hemorrhoids, loose stools, melena, nausea, odynophagia, rectal bleeding, tenesmus, vomiting or weight changes Vital Signs Vital Signs Vital Signs: 03/05/25 06:20 03/05/25 06:20 03/05/25 06:22 Temperature 97.1 F L Temperature Source Oral Pulse Rate 71 Respiratory Rate 18 Respiratory Pattern Normal Blood Pressure 133/82 H Blood Pressure Mean 99 Blood Pressure Source Monitor Blood Pressure Position Semi-Fowlers Blood Pressure Location Left Arm Baseline BP 133/82 Pulse Ox 100 Oxygen Delivery Method Room Air 03/05/25 06:57 Temperature 97.1 F L Temperature Source Pulse Rate 71 Respiratory Rate 18 Respiratory Pattern Blood Pressure 133/82 H Blood Pressure Mean Blood Pressure Source Blood Pressure Position Blood Pressure Location Baseline BP Pulse Ox 100 Oxygen Delivery Method Room Air Weight Weight: 196 lb 3.382 oz Body Mass Index (BMI) 29.0 Physical Exam Const alert, oriented x3, no apparent distress and healthy appearing General Appearance: cooperative GI normal to inspection, nondistended, normoactive bowel sounds, soft to palpation, non-tender and non-distended Percussion: normal to percussion Rectal Exam: deferred Assessment & Plan Assessment/Plan (1) Loose stools: (2) Bloody stool: PLAN: Assessment and Plan Assessment and Plan (1) Bloody stool: Status: Acute (2) Loose stools: Status: Acute Plan: Jahaira is a 59-year-old male with largely unremarkable past medical history here today for evaluation of blood in his stool x 10 years. Patient referred from primary care provider due to blood in his stool over the past 10 years as well as loose/soft stools over the past year. Patient endorses blood in every bowel movement. Blood can be maroon or bright red. Sometimes he does pass only blood and no stool. Over the past year he started to have loose/soft stools without any lifestyle or medication changes. He has never had a colonoscopy. He endorses that his father had lower intestinal cancer but is unsure if this was cancer of the colon or not. Recommended colonoscopy for evaluation of blood in his stool and loose stools. Pending result will consider further workup and/or treatment. Patient agreeable to proceed. - Colonoscopy - Follow-up as needed Note: Portions of this note may have been selectively carried forward from previous documentation to ensure continuity and accuracy of the clinical record. All imported information has been reviewed and updated as necessary to reflect the current patient status, findings, and clinical decision-making for this encounter. [employer] speech recognition plate and weld inspector software was used to create portions of this document. Sound alike and misspelled words, as well as other plate and weld inspector errors may be contained in the documentation. ]
--- NOTE | 2025-03-05 07:45 | OP.COLON_ITS ---
Patient Name: Bernabe Narayan Procedure Date: 03/05/2025 7:07 AM Date of : 1965 Age: 59 Procedure: Colonoscopy Indications: Screening for colorectal malignant neoplasm Providers: Jacoby De La Paz DO Referring MD: Kevin Martins Md Medicines: Monitored Anesthesia Care Patient Profile: This is a 59 year old male. Refer to note in patient chart for documentation of history and physical. Last Colonoscopy: none. The patient's first colonoscopy is today. Complications: No immediate complications. Procedure: Pre-Anesthesia Assessment: - Prior to the procedure, a History and Physical was performed, and patient medications and allergies were reviewed. The patient is competent. The risks and benefits of the procedure and the sedation options and risks were discussed with the patient. All questions were answered and informed consent was obtained. Patient identification and proposed procedure were verified by the physician in the pre-procedure area. Mental Status Examination: alert and oriented. Airway Examination: normal oropharyngeal airway and neck mobility. Respiratory Examination: clear to auscultation. CV Examination: normal. Prophylactic Antibiotics: The patient does not require prophylactic antibiotics. Prior Anticoagulants: The patient has taken no anticoagulant or antiplatelet agents except for NSAID medication. ASA Grade Assessment: II - A patient with mild systemic disease. After reviewing the risks and benefits, the patient was deemed in satisfactory condition to undergo the procedure. The anesthesia plan was to use monitored anesthesia care (MAC). Immediately prior to administration of medications, the patient was re-assessed for adequacy to receive sedatives. The heart rate, respiratory rate, oxygen saturations, blood pressure, adequacy of pulmonary ventilation, and response to care were monitored throughout the procedure. The physical status of the patient was re-assessed after the procedure. After I obtained informed consent, the scope was passed under direct vision. Throughout the procedure, the patient's blood pressure, pulse, and oxygen saturations were monitored continuously. The colonoscope was introduced through the anus and advanced to the cecum, identified by appendiceal orifice and ileocecal valve. The colonoscopy was performed without difficulty. The patient tolerated the procedure well. The quality of the bowel preparation was adequate. The ileocecal valve, appendiceal orifice, and rectum were photographed. Scope In: 7:20:19 AM Scope Withdrawal Time 0 hours 12 minutes 33 seconds Scope Out: 7:37:36 AM Total Procedure Duration Time 0 hours 17 minutes 17 seconds Findings: The perianal and digital rectal examinations were normal. A 5 mm polyp was found in the splenic flexure. The polyp was sessile. The polyp was removed with a jumbo cold forceps. Resection and retrieval were complete. Verification of patient identification for the specimen was done. Estimated blood loss was minimal. A few small-mouthed diverticula were found in the recto-sigmoid colon, sigmoid colon and descending colon. An ulcerated partially obstructing large mass was found in the rectum. The mass was circumferential. The mass measured five cm in length. Oozing was present. This was biopsied with a cold forceps for histology. Verification of patient identification for the specimen was done. Estimated blood loss was minimal. Non-bleeding internal hemorrhoids were found during retroflexion. The hemorrhoids were Grade II (internal hemorrhoids that prolapse but reduce spontaneously). Impression: - One 5 mm polyp at the splenic flexure, removed with a jumbo cold forceps. Resected and retrieved. - Diverticulosis in the recto-sigmoid colon, in the sigmoid colon and in the descending colon. - Malignant partially obstructing tumor in the rectum. Biopsied. - Malignant-appearing tumor in the colon. Tissue was removed. Biopsied. Recommendation: - Discharge patient to home. - Resume previous diet. - Continue present medications. - Await pathology results. - Repeat colonoscopy is recommended for surveillance. The colonoscopy date will be determined after pathology results from today's exam become available for review. Procedure Code(s): --- Professional --- 35320, Colonoscopy, flexible; with biopsy, single or multiple CPT copyright 2021 [employer]. All rights reserved. The codes documented in this report are preliminary and upon jacquard card lacer review may be revised to meet current compliance requirements. Jacoby De La Paz DO 03/05/2025 7:45:32 AM This report has been signed electronically. Number of Addenda: 0 Note Initiated On: 03/05/2025 7:07 AM
--- NOTE | 2025-03-05 07:45 | OP.PROVAT_ITS ---
03/05/2025 Kevin Martins Md Re : Colonoscopy procedure for Bernabe Esposito Eliezer This procedure was performed on Wednesday, March 05, 2025. My impressions and recommendations are as follows: Impressions : - One 5 mm polyp at the splenic flexure, removed with a jumbo cold forceps. Resected and retrieved. - Diverticulosis in the recto-sigmoid colon, in the sigmoid colon and in the descending colon. - Malignant partially obstructing tumor in the rectum. Biopsied. - Malignant-appearing tumor in the colon. Tissue was removed. Biopsied. Recommendations : - Discharge patient to home. - Resume previous diet. - Continue present medications. - Await pathology results. - Repeat colonoscopy is recommended for surveillance. The colonoscopy date will be determined after pathology results from today's exam become available for review. My findings are described in the full procedure note, which is enclosed. If I can be of further assistance, please feel free to contact me at . Sincerely, Jacoby De La Paz DO 03/05/2025 7:45:32 AM This report has been signed electronically.
--- NOTE | 2025-03-05 07:51 | PCM.POST.ANE ---
Anesthesia: Postop Eval I Current Vital Signs Temperature: 97 F Pulse Rate: 77 Blood Pressure: 109/78 Respiratory Rate: 16 Pulse Ox: 98 Oxygen Delivery Method: Room Air Assessment Airway patent: Yes Spontaneous unlabored respirations: Yes Mental status: Asleep nausea: No Vomiting: No Anesthesia Complication: No Fluid Hydration Crystalloid volume administer (ml): 600 Total IV fluid infused: 600 Progress Note Anesthesia document: Postop Eval 1 completed: Yes
--- NOTE | 2025-03-05 21:48 | PCM.POSTANE2 ---
Anesthesia Postop Eval I Sum Postop Eval Completion status Anesthesia document: Postop Eval 1 completed: Yes Anesthesia Postop Eval I Summary Anesthesia Postop Eval I Summary: Anesthesia Postop Eval I: Assessment Summary Airway patent Yes 03/05/25 07:52 [email or web address] Spontaneous unlabored Yes 03/05/25 07:52 [email or web address] respirations Mental status Asleep 03/05/25 07:52 [email or web address] nausea No 03/05/25 07:52 [email or web address] Vomiting No 03/05/25 07:52 [email or web address] Anesthesia Postop Eval I: Fluid Summary Crystalloid volume administer 600 03/05/25 07:52 [email or web address] (ml) Colloids volume administered ( ml) Blood Product volume administered (ml) Total IV fluid infused 600 03/05/25 07:52 [email or web address] Anesthesia Postop Eval I: Summary Notes Anesthesia Complication No 03/05/25 07:52 [email or web address] Anesthesia Complication Comment: Post-operative progress note Anesthesia: Postop Eval II Evaluation Mental status: Awake and Calm Pain Level: 0 nausea: No Vomiting: No Complications Anesthesia Complication: No
== END 2025-03-05 08:35 | disposition home or self-care (01) ==
LOC: EN 05:44 → AC 05:45
PROVIDERS: PCP Family Medicine; Referring Provider Family Medicine; Visit Provider Internal Medicine Gastroenterology
PROC: 0DJD8ZZ Inspection of Lower Intestinal Tract, Via Natural or Artificial Opening Endoscopic (ICD-10-PCS; CPT 45378; principal; 2025-03-05 06:55)
DX: R19.7 Diarrhea, unspecified (principal); K57.30 Diverticulosis of large intestine without perforation or abscess without bleeding; K63.5 Polyp of colon; K64.1 Second degree hemorrhoids; K92.1 Melena; R19.09 Other intra-abdominal and pelvic swelling, mass and lump
CPT/HCPCS: 45380; 88305; J2405